=== PATIENT | male | born 1930 | race Two or more races ===

== ENCOUNTER 2016-09-14 17:44 | Emergency (ER) | payer MEDICARE, OTHER ==
[~2016-09-14] VITALS: Ht 165.1 cm; Wt 49.9 kg
[~2016-09-14 17:44] MED LIST: ASPI-498 OR; ATOR10TA PO; B-CO-5 OR; CAL667C PO; CARV12.544 PO; CITA-77 PO; DOCU-94 PO; GABA100C PO; GLUC1KIT IJ; LEVO25TA6 PO; NITR0.2D12 TD; PANT40TA2 PO; POLY33504 PO; SEVE0.8P PO; SODB650T PO; ZOLP10TA6 PO
[2016-09-14] MEDS ORDERED: ONDANSETRON HCL 4 MG/2 ML VIAL IV ONE (20:15)
[2016-09-14] MEDS ORDERED: HYDROmorphone HCL 2 MG/ML VL IV ONE (20:15)
[2016-09-15] MEDS ORDERED: HYDROmorphone HCL 2 MG/ML VL IV ONE ×2 (00:45→03:45)
[2016-09-15 01:45] LABS: Basophils # (auto) 0.1 uL; Basophils % (auto) 1.1 % (0.0-2.0); Eosinophils # (auto) 0.1 uL; Eosinophils % (auto) 1.2 % (0.0-7.0); Hematocrit 39.3 % (41.0-53.0); Hemoglobin 12.6 g/dL (13.5-17.5); Lymphocytes # (auto) 0.7 uL; Lymphocytes % (auto) 8.1 % (10.0-50.0); Mean Corpuscular Hemoglobin 29.1 pg (28.0-32.0); Mean Corpuscular Hgb Conc. 32.2 g/dL (32.0-36.0); Mean Corpuscular Volume 90.3 fL (80.0-100.0); Mean Platelet Volume 10.2 fL (7.4-10.4); Monocytes # (auto) 0.5 uL; Monocytes % (auto) 5.9 % (0.0-12.0); Neutrophils # (auto) 7.2 uL; Neutrophils % (auto) 83.7 % (37.0-80.0); Platelet Count (auto) 143 10^3/uL (140-450); Red Cell Distribution Width 12.5 % (11.6-16.0); SUSPECT VIEW TRANSMISSION; White Blood Cell 8.6 10^3/uL (4.4-10.8)
[2016-09-15 01:46] LABS: Partial Thromboplastin Time 27.9 sec (22.64-33.71); Prothrombin Time 11.9 sec (9.37-12.3)
[2016-09-15 01:47] LABS: INR 1.16 (0.9-1.15)
[2016-09-15 01:56] LABS: Albumin 3.3 g/dL (3.4-5.0); BUN/Creatinine Ratio 8.5; Calcium 7.8 mg/dL (8.5-10.1); Magnesium 2.1 mg/dL (1.6-2.6); Potassium 3.9 mmol/L (3.5-5.1)
[2016-09-15 01:59] LABS: Bilirubin, Total 1.1 mg/dL (0.2-1.0); Total Protein 7.2 g/dL (6.4-8.2)
[2016-09-15 03:05] VITALS: BP 126/62
[2016-09-15] MEDS ORDERED: ONDANSETRON HCL 4 MG/2 ML VIAL IV ONE (03:45)
== END 2016-09-15 03:29 | disposition short-term general hospital (02) ==
LOC: EDBD 17:44 → ER 17:49
DX: S72.002A Fracture of unspecified part of neck of left femur, initial encounter for closed fracture (principal); I13.0 Hypertensive heart and chronic kidney disease with heart failure and stage 1 through stage 4 chronic kidney disease, or unspecified chronic kidney disease; N18.9 Chronic kidney disease, unspecified; I50.9 Heart failure, unspecified; E11.9 Type 2 diabetes mellitus without complications; E78.5 Hyperlipidemia, unspecified; E03.9 Hypothyroidism, unspecified; Z99.2 Dependence on renal dialysis; Z89.611 Acquired absence of right leg above knee; Z89.512 Acquired absence of left leg below knee; Z88.6 Allergy status to analgesic agent; Z88.9 Allergy status to unspecified drugs, medicaments and biological substances; W19.XXXA Unspecified fall, initial encounter; Y93.89 Activity, other specified; Y99.8 Other external cause status; Y92.89 Other specified places as the place of occurrence of the external cause
CPT/HCPCS: 36415; 71010; 72192; 73030; 80053; 83735; 85025; 85610; 85730; 93005; 96374; 96375; 96376; 99285; J1170; J2405